=== PATIENT | female | born 1985 | race Caucasian/White ===

== ENCOUNTER 2016-02-29 23:16 | Inpatient (IN) | payer OTHER ==
[~2016-02-29] VITALS: Ht 162.6 cm; Wt 64.0 kg
[2016-02-29 23:33] VITALS: BP 137/85
[2016-02-29] MEDS ORDERED: LR 1,000 ML IV SCH (23:52)
[2016-02-29] MEDS ORDERED: LACTATED RINGER'S 1000 ML IV STA (23:52)
[2016-03-01] VITALS (35 sets, daily range): BP systolic 95–168; BP diastolic 50–85
[2016-03-01] MEDS ORDERED: BUTORPHANOL 2 MG/ML INJ (J0595) IV PRN
[2016-03-01] MEDS ORDERED: OXYTOCIN DRIP 30 UNITS in APPROPRIATE DILUENT 1 EA IV SCH ×2
[2016-03-01] MEDS ORDERED: PROMETHAZINE INJ 25 MG/ML VIAL (J2550) IV PRN
[2016-03-01 00:38] LABS: MEAN CORPUSCULAR HEMOGLOBIN 31.7 pg (27.0-33.0); MEAN CORPUSCULAR HGB CONC 34.8 g/dl (32.0-36.5); MEAN CORPUSCULAR VOLUME 91.1 fl (80.0-96.0); RED CELL DISTRIBUTION WIDTH 12.6 % (11.5-14.5); WHITE BLOOD COUNT 11.8 K/mm3 (4.0-10.0)
[2016-03-01] MEDS ORDERED: PRENTAB7 PO (00:53)
[2016-03-01] MEDS ORDERED: BALS75CA PO (00:54)
[2016-03-01] MEDS ORDERED: FENTANYL 2MCG/ML ROPIVACAINE 0.2% NACL 250 ML CADD As Ordered ONE (03:23)
[2016-03-01] MEDS ORDERED: NALOXONE INJ 0.4 MG/1 ML VIAL (J2310) IV PRN (04:30)
[2016-03-01] MEDS ORDERED: EPIDURAL/PCA KEYS XX PRN (04:30)
[2016-03-01] MEDS ORDERED: ONDANSETRON 4MG/2ML VIAL (J2405) IV PRN (04:30)
[2016-03-01] MEDS ORDERED: REFRIGERATOR IV KEYS XX PRN (04:30)
[2016-03-01] MEDS ORDERED: ePHEDrine SULFATE 25 MG/5 ML(5MG/ML) SYRINGE IV PRN (04:30)
[2016-03-01] MEDS ORDERED: FENTANYL/ROPIVACAINE/NACL CADD 250 ML EPIDURAL SCH (04:30)
[2016-03-01] MEDS ORDERED: LACTATED RINGER'S 1000 ML IV PRN (04:30)
[2016-03-01] MEDS ORDERED: EPIDURAL COMMENT XX SCH (04:30)
[2016-03-01] MEDS ORDERED: diphenhydrAMINE INJ 50MG/ML VIAL (J1200) IV PRN (04:30)
[2016-03-01] MEDS: PRENATAL VITAMIN TAB PO SCH (09:00)
[2016-03-01 10:48] LABS: CORD GAS ABE V -2.7; CORD GAS HCO3 V 24.1 MEQ/L; CORD GAS O2 SAT V 52.2 %; CORD GAS PCO2 V 48.5 mmHg; CORD GAS PH V 7.315 UNITS; CORD GAS PO2 V 22.9 mmHg; CORD GAS SBC V 20.8 MEQ/L; CORD GAS TCO2 V 25.6 MEQ/L
[2016-03-01] MEDS ORDERED: DOCUSATE SODIUM 100 MG CAP PO PRN (11:00)
[2016-03-01] MEDS ORDERED: ANUSOL HC CREAM 30GM TOP PRN (11:00)
[2016-03-01] MEDS ORDERED: ACETAMINOPHEN 500 MG TAB PO PRN (11:00)
[2016-03-01] MEDS ORDERED: MOM 30ML SUSPENSION UDC PO PRN (11:00)
[2016-03-01] MEDS ORDERED: METHYLERGONOVINE MALEATE 0.2 MG TAB PO PRN (11:00)
[2016-03-01] MEDS ORDERED: RHOGAM 300 MCG (1500 IU) INJ (J2790) IM SCH (11:00)
[2016-03-01] MEDS ORDERED: DIBUCAINE 1% OINTMENT 30GM TOP PRN (11:00)
[2016-03-01] MEDS ORDERED: MEASLES,MUMPS,RUBELLA VACCINE INJ (MMR-II) (90707) SC SCH (11:00)
[2016-03-01] MEDS: IBUPROFEN 800 MG TAB PO PRN ×2 (16:08→22:29)
[2016-03-02 05:40] VITALS: BP 100/65
[2016-03-02] MEDS: PRENATAL VITAMIN TAB PO SCH (08:18)
--- NOTE | 2016-03-02 08:54 | HPE ---
DATE OF ADMISSION: 02/29/2016 30-year-old 1, estimated date of delivery 03/26/2016, here at 36 weeks 3 days with reports of rupture of membranes, clear fluid at 2030. Denies regular contractions or bleeding. Fetus is active. Last normal menstrual period 06/20/2015 for estimated date of delivery (BHAVIK) 03/26/2016. Sonogram at 8 weeks confirmed date. Anatomy scan within normal limits. ALLERGIES: She has no known drug allergies. MEDICAL/SURGICAL: Noncontributory. FAMILY HISTORY: Noncontributory. SOCIAL HISTORY: . Father of the baby present and supportive. Denies tobacco, alcohol or drugs. OBJECTIVE: Prepregnancy weight 124, total weight gain 18 pounds. O positive. Antibody negative. Rubella immune. VDRL, hepatitis B, HIV, gonorrhea, and Chlamydia all negative. 1-hour glucose 103. Group B strep is negative. No apparent distress. Vital signs are stable. Heart rate is regular. Respirations are easy. Abdomen is soft, gravid, longitudinal lie. Rare contractions. heart 135, moderate variability with a accelerations. Clear fluid draining per vagina. Positive Nitrazine, positive fern. Sterile vaginal exam 2-3 cm, 80%, -2, slightly posterior. ASSESSMENT: Primipara at 36 weeks 3 days, premature rupture of membranes (PPROM). Category 1 tracing. PLAN: Admit. Pitocin augmentation. The patient plans epidural.
[2016-03-02] MEDS: IBUPROFEN 800 MG TAB PO PRN ×2 (09:45→21:25)
--- NOTE | 2016-03-02 12:57 | DN ---
DATE OF SERVICE: 03/01/2016 Spontaneous rupture of membranes 02/29/2016 at 08:00 p.m. Utilized epidural for labor coping. Fully dilated 0600. Labored down. Viable female delivered left occipitoanterior (PARDEEP) through tight nuchal cord at 10:29. Spontaneous respirations with stimulation. Transitioned on maternal abdomen. Cord doubly clamped and cut once pulsations ceased. Cord gas was obtained. scores of nine and nine. Placenta Schultze and intact with three-vessel cord at 10:33. Fundus firmed with massage and intravenous (IV) Pitocin bolus. Left labial and posterior first-degree lacerations repaired with 3-0 Vicryl Rapide. Estimated blood loss 400 mL. Sponge, sharp and instrument count correct. Infant weight pending. Mom and baby doing well.
[2016-03-02 18:00] VITALS: BP 102/72
[2016-03-03 05:55] VITALS: BP 100/77
[2016-03-03] MEDS ORDERED: ACET50TA PO (09:07)
[2016-03-03] MEDS ORDERED: IBUP-1114 PO (09:09)
[2016-03-03] MEDS: PRENATAL VITAMIN TAB PO SCH (09:49)
== END 2016-03-03 11:00 | disposition home or self-care (01) | DRG 560 ==
LOC: M LDO 23:16 → M LDI 23:44 → M OBS 03-01 16:33
PROVIDERS: ADMIT Advanced Practice Midwife; ATTEND Advanced Practice Midwife
PROC: 10E0XZZ Delivery of Products of Conception, External Approach (ICD-10-PCS; principal; 2016-03-01)
PROC: 0HQ9XZZ Repair Perineum Skin, External Approach (ICD-10-PCS; 2016-03-01)
DX: O42.013 Preterm premature rupture of membranes, onset of labor within 24 hours of rupture, third trimester (principal); O70.0 First degree perineal laceration during delivery; Z3A.36 36 weeks gestation of pregnancy; Z37.0 Single live birth

== ENCOUNTER 2016-04-01 16:06 | Emergency (ER) | payer OTHER ==
[~2016-04-01 16:06] MED LIST: ACET50TA PO; BALS75CA PO; IBUP-1114 PO; PRENTAB7 PO
[2016-04-01] MEDS ORDERED: fentaNYL 100 MCG/2 ML INJECTION (J3010) As Ordered ONE (16:30)
--- NOTE | 2016-04-01 17:34 | REP ---
Left knee series, five views: History: Trauma. Findings: Five views of the left knee show normal bones, joints, soft tissues. No fracture or subluxation is seen. Impression: Negative left knee radiographs. Signed by Vignesh Torres MD 04/01/2016 06:37 P
--- NOTE | 2016-04-01 18:46 | EDDOCDS ---
Physician Documentation [facility] Name: Maryann Jay Age: 30 yrs Sex: Female : 1985 Arrival Date: 04/01/2016 Time: 16:06 Bed 11 Private MD: Marissa Leiva Disposition: 04/01/16 18:00 Discharged to Home/Self Care. Impression: Lateral dislocation of left patella. - Condition is Stable. - Discharge Instructions: Patellar Dislocation, Crutch Use. - Medication Reconciliation, Local Pharmacy Hours form. - Follow up: Marissa Leiva; When: 2 - 3 days; Reason: Recheck today's complaints. Follow up: [facility]; When: 2 - 3 days; Reason: Recheck today's complaints. - Problem is new. - Symptoms are resolved. - Notes: You were seen in the ED for a left patellar dislocation. The patella was reduced after you received pain medication. Xray now showed no other acute findings. You may wear the knee immobilizer, use the crutches as needed, and may take Tylenol as needed for pain. Rest and ice the knee. Call the [facility] in the morning to arrange to be seen for follow-up. Return to the ED for any new or worse pain or any other concerns. Historical: - Allergies: no known allergies; - Home Meds: 1. balsalazide 750 mg oral cap 3 caps 3 times per day 2 caps at night 2. Oral daily - PMHx: Crohn's; - PSHx: none; - Social history: Smoking status: Patient states was never smoker of tobacco. No barriers to communication noted, The patient speaks fluent [place] Islander, Speaks appropriately for age. - Family history: Not pertinent. - : The pt / caregiver states he / she is not on anticoagulants. Home medication list is obtained from the patient. - Exposure Risk Screening:: None identified. 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 4 in. (162.56 cm); Pain 8/10; 18:44 BP 118 / 58; Pulse 83; Resp 18; Temp 99.9(O); Pulse Ox 97% on R/A; Pain 2/10; kc3 16:21 Body Mass Index 21.46 (56.70 kg, 162.56 cm) kc3 Procedures: 17:54 Joint Reduction: of the left knee, using manipulation, Immobilized with Knee br1 Immobilizer. Patient tolerated well. Post reduction film - reveals normal alignment. Left lateral patellar dislocation reduced with manipulation.. MDM: 16:30 IV Saline Lock ordered. br1 16:30 fentaNYL (PF) 100 mcg IVP once ordered. br1 16:40 Knee, Complete Ordered. EDMS 16:50 Financial registration complete. zo 16:52 [facility] Payment Agreement was scanned into [employer] and attached to record. zo 17:31 Knee Immobilizer ordered. br1 17:57 Crutches ordered. br1 Administered Medications: 16:38 Drug: fentaNYL (PF) 100 mcg [fentanyl (PF) 50 mcg/mL injection solution (2 mL)] Route: kc3 IVP; Site: right antecubital; Signatures: Dispatcher [employer] EDMS Amalia Vargas Brian, MD MD br1 Olivia Cerrato RN RN kc3 The chart was reviewed and I authenticate all verbal orders and agree with the evaluation and treatment provided.Attachments: 16:52 [facility] Payment Agreement zo MTDD
--- NOTE | 2016-04-01 18:46 | EDDOCDS ---
Nurse's Notes [facility] Name: Maryann Jay Age: 30 yrs Sex: Female : 1985 Arrival Date: 04/01/2016 Time: 16:06 Bed 11 Private MD: Marissa Leiva Diagnosis: Lateral dislocation of left patella Presentation: 04/01 16:15 Presenting complaint: EMS states: Pt lifting boxes at work with left knee dislocating kc3 while lifting. Adult Sepsis Screening: The patient does not have new or worsening altered mentation. Patient's respiratory rate is less than 22. Systolic blood pressure is greater than 100. Patient has a qSOFA score of 0- Negative Sepsis Screen. Suicide/Homicide risk assessment- the patient denies having any suicidal and/or homicidal ideations and does not present with any other emotional, behavioral or mental health complaints. 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 Transition of care: patient was not received from another setting of care. Care prior to arrival: Medications administered prior to arrival: Zofran 4mg IV and Morphine 4 mg IV given by EMS en route. 16:15 Acuity: KANDIS Level 3 kc3 16:15 Method Of Arrival: Ambulance kc3 Triage Assessment: 16:22 General: Appears uncomfortable, Behavior is appropriate for age, cooperative. Pain: kc3 Location: left knee Pain currently is 8 out of 10 on a pain scale. Pt Declines HIV testing. The patient is triaged at the bedside. See Assessment in Nurses Notes section of ED record. Neurological: Level of Consciousness is awake, alert, obeys commands, Oriented to person, place, time. Respiratory: Airway is patent Respiratory effort is even, unlabored. Derm: Skin is pink, warm & dry. Musculoskeletal: Capillary refill < 3 seconds Range of motion limited in left knee Bony deformity noted of left knee Positive DP and PD pulses Signs and Symptoms of Compartment Syndrome: no signs of compartment syndrome Reports pain in left knee. Injury Description: Deformity sustained to left knee is dislocated, was sustained 30-60 minutes ago. 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 balsalazide 750 mg oral cap 3 caps 3 times per day 2 caps at night 2. Oral daily - PMHx: Crohn's; - PSHx: none; - Social history: Smoking status: Patient states was never smoker of tobacco. No barriers to communication noted, The patient speaks fluent Slovenian, Speaks appropriately for age. - Family history: Not pertinent. - : The pt / caregiver states he / she is not on anticoagulants. Home medication list is obtained from the patient. - Exposure Risk Screening:: None identified. Screenin:25 Screening information is obtained from the patient. Fall risk: At risk due to injury, kc3 The following interventions are performed due to a positive Fall Risk Screen: Fall Risk is added to Special Handling on the patient Summary Screen. A Fall Risk Bracelet was applied to the patient. Side Rails are placed in the up position. A Call Persaud is given with instruction to call for help when getting out of bed. Fall Alert bracelet is placed on the patient. Assistance ADL's: requires no assistance with activities of daily living. Abuse/DV Screen: The patient / caregiver reports he/she is: not in a situation that causes fear, pain or injury. Nutritional screening: No deficits noted. Advance Directives: Currently, there is no health care proxy. home support is adequate. Assessment: 16:25 General: See triage assessment for initial assessment. . kc3 17:30 General: Appears in no apparent distress, comfortable, Behavior is appropriate for age, kc3 cooperative. Pain: Location: left knee. Neurological: Level of Consciousness is awake, alert, obeys commands, Oriented to person, place, time. Respiratory: Respiratory effort is even, unlabored. Derm: Skin is pink, warm & dry. 18:43 General: Appears in no apparent distress, comfortable. Pain: Location: left knee Pain kc3 currently is 2 out of 10 on a pain scale. Neurological: Level of Consciousness is awake, alert, obeys commands. Respiratory: Respiratory effort is even, unlabored. Derm: Skin is pink, warm & dry. Vital Signs: 16:21 BP 110 / 67; Pulse 105; Resp 18; Temp 97.3(O); Pulse Ox 98% on R/A; Weight 56.7 kg; kc3 Height 5 ft. 4 in. (162.56 cm); Pain 8/10; 18:44 BP 118 / 58; Pulse 83; Resp 18; Temp 99.9(O); Pulse Ox 97% on R/A; Pain 2/10; kc3 16:21 Body Mass Index 21.46 (56.70 kg, 162.56 cm) kc3 Vitals: 16:21 Log In Time N/A - ambulance arrival. kc3 ED Course: 16:08 Patient visited by Abby Crowley, Inseam Leveler. lbd 16:08 Marissa Leiva is Private Physician. lbd 16:08 Olivia Cerrato,RN is Primary Nurse. lbd 16:08 Patient moved to Waiting lbd 16:08 Patient moved to 11 lbd 16:19 Triage Initiated kc3 16:25 The patient / caregiver is instructed regarding the plan of care and ED course. kc3 16:26 Patient visited by Olivia Cerrato RN. kc3 16:26 Maintain field IV. Dressing intact. Site clean & dry. Gauge & site: 20g right AC. kc3 16:27 Michael Bach MD is Attending Physician. br1 16:30 Patient visited by Michael Bach MD. br1 16:38 Patient visited by Michael Bach MD. br1 16:45 Assist provider with reduction of left patella using manipulation, Set up for kc3 procedure. Performed by Michael Bach MD Immobilized with knee immoblizer Patient tolerated well. 16:52 [facility] Payment Agreement was scanned into [employer] and attached to record. zo 17:09 Patient visited by Olivia Cerrato RN. kc3 17:43 Patient visited by Olivia Cerrato RN. kc3 17:59 Marissa Leiva is Referral Physician. br1 17:59 [facility] is Referral Physician. br1 18:20 Knee, Complete Returned. EDMS 18:44 Discontinued IV lock intact, bleeding controlled, pressure dressing applied, No kc3 redness/swelling at site. Administered Medications: 16:38 Drug: fentaNYL (PF) 100 mcg [fentanyl (PF) 50 mcg/mL injection solution (2 mL)] Route: kc3 IVP; Site: right antecubital; Order Results: Radiology Order: Knee, Complete Test: Knee, Complete REASON FOR EXAMINATION: Trauma; Left knee series, five views:; ; History: Trauma.; ; Findings: Five views of the left knee show normal bones, joints, soft tissues.; No fracture or subluxation is seen.; ; Impression:; ; Negative left knee radiographs.; ; ; ; ; Unreviewed; Outcome: 18:00 Discharge ordered by Provider. br1 18:45 Discharge Assessment: Patient awake, alert and oriented x 3. No cognitive and/or kc3 functional deficits noted. Patient verbalized understanding of disposition instructions. patient administered narcotics - yes. Pt provided with safe discharge. The following High Risk Discharge criteria are identified: None. Discharged to home ambulatory, with crutches. Condition: stable. Discharge instructions given to patient, Instructed on discharge instructions, follow up and referral plans. medication usage, Demonstrated understanding of instructions, crutch walking, medications, Pt was receptive of discharge instructions/ teaching. No special radiology studies were completed. Property :Personal belongings accompany Pt. 18:45 Patient left the ED. kc3 Signatures: Dispatcher [employer] EDMS Abby Crowley, Inseam Leveler Unit lbd Amalia Vargas Brian, MD MD br1 Olivia Cerrato,YARA RN kc3 DELIA
--- NOTE | 2016-04-03 19:46 | EDDOCDS ---
Nurse's Notes [facility] Name: Maryann Jay Age: 30 yrs Sex: Female : 1985 Arrival Date: 04/01/2016 Time: 16:06 Bed 11 Private MD: Marissa Leiva Diagnosis: Lateral dislocation of left patella Presentation: 04/01 16:15 Presenting complaint: EMS states: Pt lifting boxes at work with left knee dislocating kc3 while lifting. Adult Sepsis Screening: The patient does not have new or worsening altered mentation. Patient's respiratory rate is less than 22. Systolic blood pressure is greater than 100. Patient has a qSOFA score of 0- Negative Sepsis Screen. Suicide/Homicide risk assessment- the patient denies having any suicidal and/or homicidal ideations and does not present with any other emotional, behavioral or mental health complaints. 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 Transition of care: patient was not received from another setting of care. Care prior to arrival: Medications administered prior to arrival: Zofran 4mg IV and Morphine 4 mg IV given by EMS en route. 16:15 Acuity: KANDIS Level 3 kc3 16:15 Method Of Arrival: Ambulance kc3 Triage Assessment: 16:22 General: Appears uncomfortable, Behavior is appropriate for age, cooperative. Pain: kc3 Location: left knee Pain currently is 8 out of 10 on a pain scale. Pt Declines HIV testing. The patient is triaged at the bedside. See Assessment in Nurses Notes section of ED record. Neurological: Level of Consciousness is awake, alert, obeys commands, Oriented to person, place, time. Respiratory: Airway is patent Respiratory effort is even, unlabored. Derm: Skin is pink, warm & dry. Musculoskeletal: Capillary refill < 3 seconds Range of motion limited in left knee Bony deformity noted of left knee Positive DP and PD pulses Signs and Symptoms of Compartment Syndrome: no signs of compartment syndrome Reports pain in left knee. Injury Description: Deformity sustained to left knee is dislocated, was sustained 30-60 minutes ago. 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 balsalazide 750 mg oral cap 3 caps 3 times per day 2 caps at night 2. Oral daily - PMHx: Crohn's; - PSHx: none; - Social history: Smoking status: Patient states was never smoker of tobacco. No barriers to communication noted, The patient speaks fluent Faroese, Speaks appropriately for age. - Family history: Not pertinent. - : The pt / caregiver states he / she is not on anticoagulants. Home medication list is obtained from the patient. - Exposure Risk Screening:: None identified. Screenin:25 Screening information is obtained from the patient. Fall risk: At risk due to injury, kc3 The following interventions are performed due to a positive Fall Risk Screen: Fall Risk is added to Special Handling on the patient Summary Screen. A Fall Risk Bracelet was applied to the patient. Side Rails are placed in the up position. A Call Persaud is given with instruction to call for help when getting out of bed. Fall Alert bracelet is placed on the patient. Assistance ADL's: requires no assistance with activities of daily living. Abuse/DV Screen: The patient / caregiver reports he/she is: not in a situation that causes fear, pain or injury. Nutritional screening: No deficits noted. Advance Directives: Currently, there is no health care proxy. home support is adequate. Assessment: 16:25 General: See triage assessment for initial assessment. . kc3 17:30 General: Appears in no apparent distress, comfortable, Behavior is appropriate for age, kc3 cooperative. Pain: Location: left knee. Neurological: Level of Consciousness is awake, alert, obeys commands, Oriented to person, place, time. Respiratory: Respiratory effort is even, unlabored. Derm: Skin is pink, warm & dry. 18:43 General: Appears in no apparent distress, comfortable. Pain: Location: left knee Pain kc3 currently is 2 out of 10 on a pain scale. Neurological: Level of Consciousness is awake, alert, obeys commands. Respiratory: Respiratory effort is even, unlabored. Derm: Skin is pink, warm & dry. Vital Signs: 16:21 BP 110 / 67; Pulse 105; Resp 18; Temp 97.3(O); Pulse Ox 98% on R/A; Weight 56.7 kg; kc3 Height 5 ft. 4 in. (162.56 cm); Pain 8/10; 18:44 BP 118 / 58; Pulse 83; Resp 18; Temp 99.9(O); Pulse Ox 97% on R/A; Pain 2/10; kc3 16:21 Body Mass Index 21.46 (56.70 kg, 162.56 cm) kc3 Vitals: 16:21 Log In Time N/A - ambulance arrival. kc3 ED Course: 16:08 Patient visited by Abby Crowley, Welder Fitter. lbd 16:08 Marissa Leiva is Private Physician. lbd 16:08 Olivia Cerrato,RN is Primary Nurse. lbd 16:08 Patient moved to Waiting lbd 16:08 Patient moved to 11 lbd 16:19 Triage Initiated kc3 16:25 The patient / caregiver is instructed regarding the plan of care and ED course. kc3 16:26 Patient visited by Olivia Cerrato RN. kc3 16:26 Maintain field IV. Dressing intact. Site clean & dry. Gauge & site: 20g right AC. kc3 16:27 Michael Bach MD is Attending Physician. br1 16:30 Patient visited by Michael Bach MD. br1 16:38 Patient visited by Michael Bach MD. br1 16:45 Assist provider with reduction of left patella using manipulation, Set up for kc3 procedure. Performed by Michael Bach MD Immobilized with knee immoblizer Patient tolerated well. 16:52 [facility] Payment Agreement was scanned into [employer] and attached to record. zo 17:09 Patient visited by Olivia Cerrato RN. kc3 17:43 Patient visited by Olivia Cerrato RN. kc3 17:59 Marissa Leiva is Referral Physician. br1 17:59 [facility] is Referral Physician. br1 18:20 Knee, Complete Returned. EDMS 18:44 Discontinued IV lock intact, bleeding controlled, pressure dressing applied, No kc3 redness/swelling at site. 04/02 11:42 T-Sheet-- Draft Copy was scanned into [employer] and attached to record. gb 11:43 PCR was scanned into [employer] and attached to record. gb Administered Medications: 04/01 16:38 Drug: fentaNYL (PF) 100 mcg [fentanyl (PF) 50 mcg/mL injection solution (2 mL)] Route: kc3 IVP; Site: right antecubital; Order Results: Radiology Order: Knee, Complete Test: Knee, Complete REASON FOR EXAMINATION: Trauma; Left knee series, five views:; ; History: Trauma.; ; Findings: Five views of the left knee show normal bones, joints, soft tissues.; No fracture or subluxation is seen.; ; Impression:; ; Negative left knee radiographs.; ; ; Signed by; Vignesh Torres MD 04/01/2016 06:37 P; Outcome: 18:00 Discharge ordered by Provider. br1 18:45 Discharge Assessment: Patient awake, alert and oriented x 3. No cognitive and/or kc3 functional deficits noted. Patient verbalized understanding of disposition instructions. patient administered narcotics - yes. Pt provided with safe discharge. The following High Risk Discharge criteria are identified: None. Discharged to home ambulatory, with crutches. Condition: stable. Discharge instructions given to patient, Instructed on discharge instructions, follow up and referral plans. medication usage, Demonstrated understanding of instructions, crutch walking, medications, Pt was receptive of discharge instructions/ teaching. No special radiology studies were completed. Property :Personal belongings accompany Pt. 18:45 Patient left the ED. kc3 Signatures: Dispatcher [employer] EDMS Abby Crowley, Welder Fitter Unit lbd Piedad Stratton, Reg Reg Amalia Noyola Brian, MD MD br1 Olivia Cerrato,RN RN kc3 Chart Complete MTDD
--- NOTE | 2016-04-03 19:46 | EDDOCDS ---
Physician Documentation [facility] [place] Name: Maryann Jay Age: 30 yrs Sex: Female : 1985 Arrival Date: 04/01/2016 Time: 16:06 Bed 11 Private MD: Marissa Leiva Disposition: 04/01/16 18:00 Discharged to Home/Self Care. Impression: Lateral dislocation of left patella. - Condition is Stable. - Discharge Instructions: Patellar Dislocation, Crutch Use. - Medication Reconciliation, Local Pharmacy Hours form. - Follow up: Marissa Leiva; When: 2 - 3 days; Reason: Recheck today's complaints. Follow up: [facility]; When: 2 - 3 days; Reason: Recheck today's complaints. - Problem is new. - Symptoms are resolved. - Notes: You were seen in the ED for a left patellar dislocation. The patella was reduced after you received pain medication. Xray now showed no other acute findings. You may wear the knee immobilizer, use the crutches as needed, and may take Tylenol as needed for pain. Rest and ice the knee. Call the [facility] in the morning to arrange to be seen for follow-up. Return to the ED for any new or worse pain or any other concerns. Historical: - Allergies: no known allergies; - Home Meds: 1. balsalazide 750 mg oral cap 3 caps 3 times per day 2 caps at night 2. Oral daily - PMHx: Crohn's; - PSHx: none; - Social history: Smoking status: Patient states was never smoker of tobacco. No barriers to communication noted, The patient speaks fluent Serbian, Speaks appropriately for age. - Family history: Not pertinent. - : The pt / caregiver states he / she is not on anticoagulants. Home medication list is obtained from the patient. - Exposure Risk Screening:: None identified. 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 4 in. (162.56 cm); Pain 8/10; 18:44 BP 118 / 58; Pulse 83; Resp 18; Temp 99.9(O); Pulse Ox 97% on R/A; Pain 2/10; kc3 16:21 Body Mass Index 21.46 (56.70 kg, 162.56 cm) kc3 Procedures: 17:54 Joint Reduction: of the left knee, using manipulation, Immobilized with Knee br1 Immobilizer. Patient tolerated well. Post reduction film - reveals normal alignment. Left lateral patellar dislocation reduced with manipulation.. MDM: 16:30 IV Saline Lock ordered. br1 16:30 fentaNYL (PF) 100 mcg IVP once ordered. br1 16:40 Knee, Complete Ordered. EDMS 16:50 Financial registration complete. zo 16:52 [facility] Payment Agreement was scanned into [employer] and attached to record. zo 17:31 Knee Immobilizer ordered. br1 17:57 Crutches ordered. br1 04/02 11:42 T-Sheet-- Draft Copy was scanned into [employer] and attached to record. gb 11:43 PCR was scanned into [employer] and attached to record. gb Administered Medications: 04/01 16:38 Drug: fentaNYL (PF) 100 mcg [fentanyl (PF) 50 mcg/mL injection solution (2 mL)] Route: kc3 IVP; Site: right antecubital; Signatures: Dispatcher [employer] EDNM Piedad Stratton, Reg Reg Amalia Noyola Brian, MD MD br1 Olivia Cerrato,RN RN kc3 The chart was reviewed and I authenticate all verbal orders and agree with the evaluation and treatment provided.Attachments: 16:52 [facility] Payment Agreement zo 04/02 11:42 T-Sheet-- Draft Copy gb Chart Complete MTDD
--- NOTE | 2016-04-03 19:47 | EDDOCDS ---
Physician Documentation [facility] Name: Maryann Jay Age: 30 yrs Sex: Female : 1985 Arrival Date: 04/01/2016 Time: 16:06 Bed 11 Private MD: Marissa Leiva Disposition: 04/01/16 18:00 Discharged to Home/Self Care. Impression: Lateral dislocation of left patella. - Condition is Stable. - Discharge Instructions: Patellar Dislocation, Crutch Use. - Medication Reconciliation, Local Pharmacy Hours form. - Follow up: Marissa Leiva; When: 2 - 3 days; Reason: Recheck today's complaints. Follow up: [facility]; When: 2 - 3 days; Reason: Recheck today's complaints. - Problem is new. - Symptoms are resolved. - Notes: You were seen in the ED for a left patellar dislocation. The patella was reduced after you received pain medication. Xray now showed no other acute findings. You may wear the knee immobilizer, use the crutches as needed, and may take Tylenol as needed for pain. Rest and ice the knee. Call the [facility] in the morning to arrange to be seen for follow-up. Return to the ED for any new or worse pain or any other concerns. Historical: - Allergies: no known allergies; - Home Meds: 1. balsalazide 750 mg oral cap 3 caps 3 times per day 2 caps at night 2. Oral daily - PMHx: Crohn's; - PSHx: none; - Social history: Smoking status: Patient states was never smoker of tobacco. No barriers to communication noted, The patient speaks fluent [place], Speaks appropriately for age. - Family history: Not pertinent. - : The pt / caregiver states he / she is not on anticoagulants. Home medication list is obtained from the patient. - Exposure Risk Screening:: None identified. DISC PAD [employer]: 04/01 16:21 LMP N/A - Recent kc3 Vital Signs: 16:21 BP 110 / 67; Pulse 105; Resp 18; Temp 97.3(O); Pulse Ox 98% on R/A; Weight 56.7 kg / kc3 125 lbs; Height 5 ft. 4 in. (162.56 cm); Pain 8/10; 18:44 BP 118 / 58; Pulse 83; Resp 18; Temp 99.9(O); Pulse Ox 97% on R/A; Pain 2/10; kc3 16:21 Body Mass Index 21.46 (56.70 kg, 162.56 cm) kc3 Procedures: 17:54 Joint Reduction: of the left knee, using manipulation, Immobilized with Knee br1 Immobilizer. Patient tolerated well. Post reduction film - reveals normal alignment. Left lateral patellar dislocation reduced with manipulation.. MDM: 16:30 IV Saline Lock ordered. br1 16:30 fentaNYL (PF) 100 mcg IVP once ordered. br1 16:40 Knee, Complete Ordered. EDMS 16:50 Financial registration complete. zo 16:52 [facility] Payment Agreement was scanned into [employer] and attached to record. zo 17:31 Knee Immobilizer ordered. br1 17:57 Crutches ordered. br1 04/02 11:42 T-Sheet-- Draft Copy was scanned into [employer] and attached to record. gb 11:43 PCR was scanned into [employer] and attached to record. gb Administered Medications: 04/01 16:38 Drug: fentaNYL (PF) 100 mcg [fentanyl (PF) 50 mcg/mL injection solution (2 mL)] Route: kc3 IVP; Site: right antecubital; Signatures: Dispatcher [employer] EDNV Piedad Stratton, Reg Reg Amalia Noyola Brian, MD MD br1 Olivia Cerrato,RN RN kc3 The chart was reviewed and I authenticate all verbal orders and agree with the evaluation and treatment provided.Attachments: 16:52 [facility] Payment Agreement zo 04/02 11:42 T-Sheet-- Draft Copy gb Chart Complete MTDD
== END 2016-04-01 18:45 | disposition home or self-care (01) ==
LOC: M ED 16:06
DX: S83.012A Lateral subluxation of left patella, initial encounter (principal); X50.0XXA Overexertion from strenuous movement or load, initial encounter; Y92.018 Other place in single-family (private) house as the place of occurrence of the external cause; Y93.89 Activity, other specified; Y99.8 Other external cause status; K50.90 Crohn's disease, unspecified, without complications; Z79.899 Other long term (current) drug therapy
CPT/HCPCS: 27560; 73564; 96374; 99284; J3010

== ENCOUNTER → 2018-06-08 | Outpatient (REF) | payer OTHER ==
[~2018-06-08] MED LIST changes: -ACET50TA PO; +MAPA500T2 PO
== END ==
LOC: M SFHCLERA 11:51
PROVIDERS: ATTEND Nurse Practitioner Family
DX: R21 Rash and other nonspecific skin eruption (principal)

== ENCOUNTER → 2021-11-28 | Outpatient (REF) | payer BC ==
[2021-11-28 11:44] LABS: BASO # 0.1 10^3/uL (0.0-0.2); BASO % 0.8 % (0.0-1.0); EOS # 0.1 10^3/uL (0.0-0.5); EOS % 1.5 % (0.0-3.0); HEMOGLOBIN 12.8 g/dl (12.0-15.5); LYMPH # 2.2 10^3/uL (1.5-5.0); LYMPH % 29.9 % (24.0-44.0); MEAN CORPUSCULAR HEMOGLOBIN 29.6 pg (27.0-33.0); MEAN CORPUSCULAR VOLUME 92.4 fl (80.0-96.0); MONO # 0.8 10^3/uL (0.0-0.8); MONO % 10.4 % (2.0-8.0); NEUTROPHILS # 4.3 10^3/uL (1.5-8.5); NEUTROPHILS % 57.3 % (36.0-66.0); PLATELET COUNT, AUTOMATED 346 10^3/uL (150-450); RED BLOOD COUNT 4.33 10^6/uL (4.00-5.40); WHITE BLOOD COUNT 7.5 10^3/uL (4.0-10.0)
[2021-11-28 12:07] LABS: ALBUMIN 3.7 GM/DL (3.2-5.2); ALT/SGPT 15 U/L (12-78); BILIRUBIN,TOTAL 0.4 MG/DL (0.2-1.0); BLOOD UREA NITROGEN 17 MG/DL (7-18); CALCIUM LEVEL 9.1 MG/DL (8.5-10.1); CARBON DIOXIDE LEVEL 26 MEQ/L (21-32); CHLORIDE LEVEL 105 MEQ/L (98-107); CHOLESTEROL LEVEL 166 MG/DL (<200); CHOLESTEROL RISK RATIO 2.405 (<5); CREATININE FOR GFR 0.65 MG/DL (0.55-1.30); GLOMERULAR FILTRATION RATE > 60.0 (>60); GLUCOSE, FASTING 95 MG/DL (70-100); HDL CHOLESTEROL 69 MG/DL (>40); LDL CHOLESTEROL 86 MG/DL (<100); NON-HDL-C 97 MG/DL; POTASSIUM SERUM 4.5 MEQ/L (3.5-5.1); SODIUM LEVEL 137 MEQ/L (136-145); TOTAL PROTEIN 6.8 GM/DL (6.4-8.2); TRIGLYCERIDES LEVEL 57 MG/DL (<150)
[2021-11-28 13:04] LABS: TOTAL 25(OH) VITAMIN D 43.8 NG/ML (30.0-100.0)
[2021-11-28 14:14] LABS: VITAMIN B12 LEVEL 712 PG/ML (247-911)
[2021-12-02 20:07] LABS: Methylmalonic Acid 157 nmol/L (0-378)
== END ==
LOC: M SFHCCLAY 08:40
PROVIDERS: ATTEND Physician Assistant
DX: Z00.00 Encounter for general adult medical examination without abnormal findings (principal)

== ENCOUNTER → 2022-04-20 | Outpatient (REF) | payer BC | LOC: M SFHCWAGY 17:10 | PROVIDERS: ATTEND Nurse Practitioner Family | DX: Z12.4 Encounter for screening for malignant neoplasm of cervix (principal); N76.0 Acute vaginitis | CPT/HCPCS: 87624; G0123 ==

== ENCOUNTER → 2022-05-28 | Outpatient (CLI) | payer BC | LOC: M WHC 09:05 | PROVIDERS: ATTEND Nurse Practitioner Family | DX: N63.10 Unspecified lump in the right breast, unspecified quadrant (principal) ==

== ENCOUNTER → 2022-07-28 | Outpatient (CLI) | payer BC | LOC: M WHC 12:39 | PROVIDERS: ATTEND Nurse Practitioner Family | DX: N63.10 Unspecified lump in the right breast, unspecified quadrant (principal) | CPT/HCPCS: 77066; G0279 ==

== ENCOUNTER → 2023-01-13 | Outpatient (REF) | payer BC ==
[2023-01-13 11:56] LABS: APPEARANCE, URINE HAZY (CLEAR); BACTERIA, URINE AUTO NEGATIVE (NEGATIVE); BILIRUBIN, URINE AUTO NEGATIVE (NEGATIVE); BLOOD, URINE BLOOD NEGATIVE (NEGATIVE); COLOR, URINE YELLOW (YELLOW); GLUCOSE, URINE (UA) AUTO NEGATIVE (NEGATIVE); KETONE, URINE AUTO NEGATIVE (NEGATIVE); LEUKOCYTE ESTERASE, URINE AUTO 1+ (NEGATIVE); MUCUS, URINE SMALL (NEGATIVE); NITRITE, URINE AUTO NEGATIVE (NEGATIVE); PROTEIN, URINE AUTO NEGATIVE (NEGATIVE); RBC, URINE AUTO 1 /HPF (0-3); SPECIFIC GRAVITY URINE AUTO 1.019 (1.002-1.035); SQUAMOUS EPITHELIAL CELL UR AU 10 /HPF (0-6); UROBILINOGEN, URINE AUTO 0.2 mg/dL (0.0-2.0); WBC, URINE AUTO 6 /HPF (0-3)
[2023-01-13 11:58] LABS: BASO # 0.1 10^3/uL (0.0-0.2); BASO % 1.1 % (0.0-1.0); EOS # 0.3 10^3/uL (0.0-0.5); EOS % 4.2 % (0.0-3.0); HEMATOCRIT 42.9 % (36.0-47.0); HEMOGLOBIN 13.8 g/dl (12.0-15.5); LYMPH # 2.6 10^3/uL (1.5-5.0); LYMPH % 40.7 % (24.0-44.0); MEAN CORPUSCULAR HEMOGLOBIN 29.9 pg (27.0-33.0); MEAN CORPUSCULAR HGB CONC 32.2 g/dl (32.0-36.5); MEAN CORPUSCULAR VOLUME 92.9 fl (80.0-96.0); MONO # 0.7 10^3/uL (0.0-0.8); NEUTROPHILS # 2.7 10^3/uL (1.5-8.5); NEUTROPHILS % 42.8 % (36.0-66.0); PLATELET COUNT, AUTOMATED 478 10^3/uL (150-450); RED BLOOD COUNT 4.62 10^6/uL (4.00-5.40); WHITE BLOOD COUNT 6.4 10^3/uL (4.0-10.0)
[2023-01-13 12:30] LABS: ALBUMIN 3.7 G/DL (3.2-5.2); ALKALINE PHOSPHATASE 60 U/L (46-116); ALT/SGPT 15 U/L (7.0-40); AST/SGOT 14 U/L (<34); BILIRUBIN,TOTAL 0.5 MG/DL (0.3-1.2); BLOOD UREA NITROGEN 14 MG/DL (9-23); CALCIUM LEVEL 9.2 MG/DL (8.5-10.1); CARBON DIOXIDE LEVEL 27 MMOL/L (20-31); CHLORIDE LEVEL 105 MMOL/L (98-107); CHOLESTEROL LEVEL 199 MG/DL (<200); CHOLESTEROL RISK RATIO 3.08 (<5); CREATININE FOR GFR 0.64 MG/DL (0.55-1.30); GLOMERULAR FILTRATION RATE > 60.0 (>60); GLUCOSE, FASTING 82 MG/DL (60-100); HDL CHOLESTEROL 64.6 MG/DL (>40); LDL CHOLESTEROL 116.4 MG/DL (<100); NON-HDL-C 134.4 MG/DL; POTASSIUM SERUM 4.8 MMOL/L (3.5-5.1); SODIUM LEVEL 140 MMOL/L (136-145); TOTAL PROTEIN 7.2 G/DL (5.7-8.2); TRIGLYCERIDES LEVEL 90 MG/DL (<150)
[2023-01-13 12:31] LABS: THYROID STIMULATING HORMONE 1.185 uIU/ML (0.55-4.78)
[2023-01-13 12:35] LABS: HCG, SERUM QUALITATIVE NEGATIVE (NEGATIVE)
== END ==
LOC: M SFHCCLAY 09:29
PROVIDERS: ATTEND Physician Assistant
DX: Z00.00 Encounter for general adult medical examination without abnormal findings (principal)

== ENCOUNTER → 2023-02-09 | Outpatient (REF) | payer BC | LOC: M SFHCLERA 16:22 | PROVIDERS: ATTEND Family Medicine | DX: R30.0 Dysuria (principal) ==

== ENCOUNTER → 2023-02-23 | Outpatient (REF) | payer BC ==
[2023-02-23 11:54] LABS: BASO # 0.1 10^3/uL (0.0-0.2); BASO % 0.9 % (0.0-1.0); EOS # 0.2 10^3/uL (0.0-0.5); EOS % 2.4 % (0.0-3.0); HEMATOCRIT 39.2 % (36.0-47.0); HEMOGLOBIN 12.7 g/dl (12.0-15.5); LYMPH % 30.6 % (24.0-44.0); MEAN CORPUSCULAR HEMOGLOBIN 29.7 pg (27.0-33.0); MEAN CORPUSCULAR HGB CONC 32.4 g/dl (32.0-36.5); MEAN CORPUSCULAR VOLUME 91.6 fl (80.0-96.0); MONO # 0.7 10^3/uL (0.0-0.8); MONO % 9.9 % (2.0-8.0); NEUTROPHILS # 3.7 10^3/uL (1.5-8.5); NEUTROPHILS % 55.9 % (36.0-66.0); PLATELET COUNT, AUTOMATED 307 10^3/uL (150-450); RED BLOOD COUNT 4.28 10^6/uL (4.00-5.40); WHITE BLOOD COUNT 6.7 10^3/uL (4.0-10.0)
== END ==
LOC: M SFHCCLAY 08:57
PROVIDERS: ATTEND Physician Assistant
DX: D75.839 Thrombocytosis, unspecified (principal)

== ENCOUNTER → 2023-05-17 | Outpatient (REF) | payer BC | LOC: M SFHCWAGY 10:43 | PROVIDERS: ATTEND Nurse Practitioner Family | DX: Z12.4 Encounter for screening for malignant neoplasm of cervix (principal) | CPT/HCPCS: 87624; G0123 ==

== ENCOUNTER → 2024-02-27 | Outpatient (REF) | payer BC ==
[2024-02-27 18:27] LABS: APPEARANCE, URINE CLOUDY (CLEAR); BACTERIA, URINE AUTO 3+ (NEGATIVE); BILIRUBIN, URINE AUTO NEGATIVE (NEGATIVE); BLOOD, URINE BLOOD 3+ (NEGATIVE); COLOR, URINE AMBER (YELLOW); GLUCOSE, URINE (UA) AUTO NEGATIVE (NEGATIVE); KETONE, URINE AUTO NEGATIVE (NEGATIVE); LEUKOCYTE ESTERASE, URINE AUTO 3+ (NEGATIVE); MUCUS, URINE SMALL (NEGATIVE); NITRITE, URINE AUTO POSITIVE (NEGATIVE); PROTEIN, URINE AUTO 2+ mg/dL (NEGATIVE); RBC, URINE AUTO 38 /HPF (0-3); SQUAMOUS EPITHELIAL CELL UR AU 8 /HPF (0-6); UROBILINOGEN, URINE AUTO 0.2 mg/dL (0.0-2.0); WBC, URINE AUTO TNTC /HPF (0-3)
== END ==
LOC: M LAB REF 17:57
PROVIDERS: ATTEND Physician Assistant Medical
DX: N39.0 Urinary tract infection, site not specified (principal)

== ENCOUNTER → 2024-03-16 | Outpatient (REF) | payer BC ==
[2024-03-16 21:03] LABS: APPEARANCE, URINE HAZY (CLEAR); BACTERIA, URINE AUTO NEGATIVE (NEGATIVE); BILIRUBIN, URINE AUTO NEGATIVE (NEGATIVE); BLOOD, URINE BLOOD 1+ (NEGATIVE); COLOR, URINE YELLOW (YELLOW); GLUCOSE, URINE (UA) AUTO NEGATIVE (NEGATIVE); KETONE, URINE AUTO NEGATIVE (NEGATIVE); LEUKOCYTE ESTERASE, URINE AUTO TRACE (NEGATIVE); MUCUS, URINE SMALL (NEGATIVE); NITRITE, URINE AUTO NEGATIVE (NEGATIVE); PROTEIN, URINE AUTO NEGATIVE (NEGATIVE); RBC, URINE AUTO 11 /HPF (0-3); SPECIFIC GRAVITY URINE AUTO 1.017 (1.002-1.035); SQUAMOUS EPITHELIAL CELL UR AU 4 /HPF (0-6); UROBILINOGEN, URINE AUTO 0.2 mg/dL (0.0-2.0); WBC, URINE AUTO 5 /HPF (0-3)
== END ==
LOC: M LAB REF 20:37
PROVIDERS: ATTEND Physician Assistant Medical
DX: N39.0 Urinary tract infection, site not specified (principal)

== ENCOUNTER → 2024-03-21 | Outpatient (REF) | payer BC | LOC: M SFHCCLAY 11:06 | PROVIDERS: ATTEND Physician Assistant | DX: N89.8 Other specified noninflammatory disorders of vagina (principal); R30.0 Dysuria ==

== ENCOUNTER → 2024-06-09 | Outpatient (REF) | payer BC ==
[2024-06-09 17:58] LABS: HEMATOCRIT 41.4 % (36.0-47.0); HEMOGLOBIN 13.5 g/dl (12.0-15.5); MEAN CORPUSCULAR HEMOGLOBIN 29.7 pg (27.0-33.0); MEAN CORPUSCULAR HGB CONC 32.6 g/dl (32.0-36.5); MEAN CORPUSCULAR VOLUME 91.2 fl (80.0-96.0); PLATELET COUNT, AUTOMATED 403 10^3/uL (150-450); RED BLOOD COUNT 4.54 10^6/uL (4.00-5.40); WHITE BLOOD COUNT 7.1 10^3/uL (4.0-10.0)
[2024-06-09 18:19] LABS: C REACTIVE PROTEIN QUANTITATIV < 0.50 MG/DL (<1.0)
[2024-06-09 18:20] LABS: ALBUMIN 3.7 G/DL (3.2-5.2); ALKALINE PHOSPHATASE 58 U/L (35-104); ALT/SGPT 20 U/L (7.0-40); AST/SGOT 12 U/L (<34); BILIRUBIN,TOTAL 0.4 MG/DL (0.3-1.2); BLOOD UREA NITROGEN 13 MG/DL (9-23); CALCIUM LEVEL 9.1 MG/DL (8.5-10.1); CARBON DIOXIDE LEVEL 27 MMOL/L (20-31); CHLORIDE LEVEL 103 MMOL/L (98-107); CREATININE FOR GFR 0.59 MG/DL (0.55-1.30); GLOMERULAR FILTRATION RATE > 90.0 (>60); GLUCOSE, FASTING 78 MG/DL (60-100); POTASSIUM SERUM 4.7 MMOL/L (3.5-5.1); SODIUM LEVEL 137 MMOL/L (136-145); TOTAL PROTEIN 6.9 G/DL (5.7-8.2)
== END ==
LOC: M LABDRAWC 17:26
PROVIDERS: ATTEND Nurse Practitioner Family
DX: K52.9 Noninfective gastroenteritis and colitis, unspecified (principal); K50.10 Crohn's disease of large intestine without complications

== ENCOUNTER → 2024-06-11 | Outpatient (REF) | payer BC | LOC: M LAB REF 11:51 | PROVIDERS: ATTEND Nurse Practitioner Family | DX: K52.9 Noninfective gastroenteritis and colitis, unspecified (principal); K50.10 Crohn's disease of large intestine without complications ==